=== PATIENT | male | born 1990 | race Caucasian/White ===

== ENCOUNTER 2023-10-28 22:28 | Emergency (ER) | payer SELFPAY ==
[~2023-10-28] VITALS: Ht 180.3 cm; Wt 104.3 kg
[2023-10-28 22:38] VITALS: BP 123/77; PULSE 82; RESP 14; TEMP 97.5; O2SAT 99
[2023-10-28] MEDS ORDERED: CYCL-711 PO (23:50)
[2023-10-28] MEDS ORDERED: IBUP-2218 PO (23:50)
[2023-10-28] MEDS ORDERED: DICL20GE TP (23:50)
[2023-10-28] MEDS: LIDOCAINE 5% 1 EA PATCH TP ONE (23:57)
[2023-10-28] MEDS: CYCLOBENZAPRINE 10 MG TAB PO ONE (23:57)
[2023-10-28] MEDS: KETOROLAC 30 MG/ML VIAL IM ONE (23:57)
[2023-10-29 00:01] VITALS: BP 123/77; PULSE 82; RESP 14; TEMP 97.5; O2SAT 99
== END 2023-10-29 00:01 | disposition home or self-care (01) ==
LOC: MED 22:28
DX: S39.012A Strain of muscle, fascia and tendon of lower back, initial encounter (principal); Z79.899 Other long term (current) drug therapy; X58.XXXA Exposure to other specified factors, initial encounter; Y93.89 Activity, other specified; Y92.89 Other specified places as the place of occurrence of the external cause; Y99.8 Other external cause status
CPT/HCPCS: 96372; 99283; J1885